=== PATIENT | female | born 1955 | race Caucasian/White ===

== ENCOUNTER 2021-08-22 03:26 | Emergency (ER) | payer OTHER ==
[~2021-08-22] VITALS: Ht 170.2 cm; Wt 85.2 kg
== END 2021-08-22 06:12 | disposition home or self-care (01) ==
LOC: ER 03:26
DX: S42.215A Unspecified nondisplaced fracture of surgical neck of left humerus, initial encounter for closed fracture (principal); S51.011A Laceration without foreign body of right elbow, initial encounter; Z23 Encounter for immunization; F17.200 Nicotine dependence, unspecified, uncomplicated; W10.9XXA Fall (on) (from) unspecified stairs and steps, initial encounter
CPT/HCPCS: 12001; 29105; 73060; 90471; 90714; 96374; 99283-25; J1885